=== PATIENT | male | born 1980 | race Hispanic/Latino ===

== ENCOUNTER 2023-03-04 18:32 | Emergency (ER) | payer SELFPAY ==
--- OUTSIDE RECORDS SUMMARY | 2023-03-04 18:35 | XMS REPORT | Continuity of Care Document ---
:1980 Author Organization [facility] t Address [address] [place] [address] Care Team Providers Name Role Phone Angella Becerril Primary Care Physician [phone] Yolanda Aguilar DO Attending Clinician Problems Condition Condition Condition Status Onset Resolution Last Treating Co mments Source Name Details Category Date Date Treatment Clinician Date No known No known Disease Unive rs active active ity of problems problems [facility] Allergies, Adverse Reactions, Alerts Allergy Allergy Status Severity Reaction(s) Onset Inactive Treating Comm ents Source Name Type Date Date Clinician NO KNOWN Drug Active Univers ALLERGIE Class ity of S [facility] Social History Social Habit Start Date Stop Date Quantity Comments Source Exposure to Not sure [facility] SARS-CoV-2 (event) Medica l Agency Sex Assigned At [birth year] [facility] 00:00:00 00:00:00 [facility] Smoking Status Start Date Stop Date Source Unknown if ever smoked [facility] Medications Ordered Filled Start Stop Current Ordering Indication Dosage Frequency Signature Comments Components Source Medication Medication Date Date Medication? Clinician (SIG) Name Name TAKE 1 2021-10 No 800 TABLET 3 1-04 TIMES DAILY 00:00: WITH FOOD 00 NEEDED. acetaminoph 2020- No 650mg 650 mg, U nivers en 04-21 Oral, ity of (TYLENOL) 19:30: 18[place]38 [place] 650 00 :00 dose, Sat Medi anshul mg 04/21/21 at Branch 1430, JOE dexamethaso 2020- No 10mg 10 mg, IV Univers ne 04-21 0710 Push, ity of (DECADRON 19:30: 19:30 [place] PHOS[place] 00 :00 dose, Sat Medi anshul injection 04/21/21 at Bran ch 10 mg 1430, STAT ketorolac 30mg 30 mg, Unive rs (TORADOL) 04-21 Slow IV ity of injection 18:30: 18:38 Push, [place] 30 mg 00 :00 ONCE, 1 Medical dose, [email or web address] Branch 04/21/21 at 1330, JOE
Fa culty member approving Restricted medication : YOLANDA AGUILAR Dose No Unknown -30 00:00: 00 No known [facility] Sign[facility] Vital Name Observation Time Observation Value Comments Source Systolic blood 2021-04-21 18:00:00 128 [facility]Hg[facility] Diastolic blood 2021-04-21 18:00:00 99 mm[Hg] [facility] Heart rate 2021-04-21 18:00:00 90 /min [facility] Respiratory rate 2021-04-21 18:00:00 13 /min [facility] Oxygen saturation in 2021-04-21 18:00:00 97 /min [facility] Arterial blood by [facility] Pulse oximetry Branch Body temperature 2021-04-21 17:44:00 37.94 Yakelin [facility] Body weight 2021-04-21 17:44:00 90.719 kg [facility] Heart Rate 2022-08-16 08:41:00 61.00 /min Respiratory Rate 2022-08-16 08:41:00 18.00 /min BP Systolic 2022-08-16 08:41:00 141 mm[Hg] BP Diastolic 2022-08-16 08:41:00 89 mm[Hg] Weight Measured 2022-08-16 08:41:00 200.60 pounds Height Measured 2022-08-16 08:41:00 68.00 inches Body Temperature 2022-08-16 08:41:00 97.60 degrees BP Systolic 2015-01-09 08:37:00 131 mm[Hg] BP Diastolic 2015-01-09 08:37:00 90 mm[Hg] Weight Measured 2015-01-09 08:37:00 198.40 pounds Height Measured 2015-01-09 08:37:00 68.00 inches Body Temperature 2015-01-09 08:37:00 98.30 degrees Heart Rate 2015-01-09 08:37:00 73.00 /min Respiratory Rate 2015-01-09 08:37:00 14.00 /min BP Systolic 2015-01-09 08:36:00 131 mm[Hg] BP Diastolic 2015-01-09 08:36:00 90 mm[Hg] Weight Measured 2015-01-09 08:36:00 198.40 pounds Height Measured 2015-01-09 08:36:00 68.00 inches Body Temperature 2015-01-09 08:36:00 98.30 degrees Heart Rate 2015-01-09 08:36:00 73.00 /min Respiratory Rate 2015-01-09 08:36:00 14.00 /min Procedures Procedure Date / Time Performed Performing Clinician [facility] e NOTICE OF PRIVACY 2021-04-21 17:29:23 Doctor Unassigned, No Univ [facility] PRACTICES Name Medical Branch CONSENT/REFUSAL FOR 2021-04-21 17:28:43 Doctor Unassigned, [facility] AND Name [facility] Branch TREATMENT Plan of Care Planned Activity Planned Date Details Comments Source Goal Plan of Care Note [code = 75385-8] Goal Plan of Care Note [code = 20326-1] Goal Plan of Care Note [code = 58880-3] Goal Plan of Care Note [code = 75230-7] Encounters Start End Encounter Admission Attending Care Care Encounter Source Date/Time Date/Time Type Type Clinicians Facility Department ID 2022-11-14 2022-11-14 Outpatient SFA SFA [id number] Ramesh 08:12:00 08:12:00 [id number] F Andreas 2022-11-13 2022-11-13 Outpatient SFA SFA [id number] Ramesh 15:06:00 15:06:00 [id number] F Andreas 2022-08-28 2022-08-28 Outpatient SFA SFA [id number] Ramesh 08:12:39 08:12:39 [id number] F Andreas 2022-08-21 2022-08-21 Outpatient SFA SFA [id number] Ramesh 16:31:49 16:31:49 [id number] F Andreas 2022-08-16 2022-08-16 Outpatient SFA SFA [id number] Ramesh 08:26:26 08:26:26 1104 F Andreas 2022-08-16 2022-08-16 Outpatient [id number] 00:00:00 00:00:00 Visit [id number] 2021-04-21 2021-04-21 [facility] [id number] Univers 12:46:00 14:02:00 [id number] [id number] [place] [id number] Agency 2021-04-21 2021-04-21 Emergency X [facility] [place] ERT [id number] Univers 12:29:00 12:29:00 ity [facility] [place] [facility] Results Test Description Test Time Test Comments Results Result Comments Source HIV 1/2 4TH GEN, RFLX CONF 2022-11-15 04:28:16 Test Item Value Reference Range Interpretation Comme nts HIV 1/2 4TH GEN, RFLX CONF (test code = 3514) NON-REACTIVE NON-REAC TIVE HEPATITIS PANEL, [id number] 04:28:16 Test Item Value Reference Range Interpretation Comments HEPATITIS A IgM (test NON-REACTIVE NON-REACTIVE code = 77382) HEPATITIS B CORE IgM NON-REACTIVE NON-REACTIVE (test code = 4644) HEPATITIS B SURF AG NON-REACTIVE NON-REACTIVE (test code = 2739) HEPATITIS C ANTIBODY NON-REACTIVE NON-REACTIVE (test code = 4675) INTERPRETATION (NOTE) Hepatitis A HEPATITIS A: (test code sero logy shows no = 2552) evidence of acu te hepatitis A. INTERPRETATION (NOTE) Hepatitis B HEPATITIS B: (test code sero logy shows no = 94193) evidence of acu te hepatitis B and no indication of exposure to hepatitis B vir us in the previous matilda eight months. INTERPRETATION (NOTE) Hepatitis C HEPATITIS C: (test code sero logy shows no = 62674) evidence of exposure to hepatitisC viru s at this time. I t can take up to 12 months after exposure tothe hepatitis C vir us for antibodies to become detectab le in the blood in certain patient s. [facility] has important pathology staff changes effecti ve 12/11/2022. New pathology staff will prov martha uninterrupted, excellent patie nt care and clinic al consultation. S ee URL: [email or web address]. UNLESS OTHERWIS E INDICATED, ALL TESTING PERFORM ED AT CLINICAL PATHOLOGY LAB[facility]ATORIES, [facility]. [address], [place] CLIA : [id number], CAP : [id number] LIPID [id number] 03:55:56 Test Item Value Reference Range Interpretation Comments CHOLESTEROL (test 218 MG/DL <200 H code = 2210) TRIGLYCERIDES (test 319 MG/DL <150 H code = 2232) HDL CHOLESTEROL (test 42 MG/DL >39 code = 2220) CALC LDL CHOL (test 130 MG/DL <100 H NOTE: C ALCULATED LDL code = 2237) IS BASED ON GIL-TALAVERA METHOD WHICHINCLUDES ADJUSTABLE TRIGLYCERIDE:VL DL CHOLESTEROL RAT IO.THIS FACTOR VARIES B Y MEASURED TRIGLY CERIDE AND NON-HDLCHOL ESTEROL CONCENTRATIONS WITH INCREASED CALCU LATED LDL SEENIN HIGH ER TRIGLYCERIDE OR LOWER NON-HDL SPECIME NS. FOR MOREINFORMATION , SEE CLIENT ANNOUNCE MENT AT [email or web address] [email or web address] LDL/HDL 3.10 RATIO <3.55 (test code = 2238) COMPREHENSIVE METABOLIC [id number] 03:55:56 Test Item Value Reference Range Interpretation Comments GLUCOSE (test code = 103 MG/DL 70-99 H 2216) BUN (test code = 13 MG/DL -2207) CREATININE (test 0.71 MG/DL 0.80-1.40 L code = 2214) eGFR (2020 CKD-EPI) 117 >60 (test code = 97043) ML/MIN/1.73 CALC BUN/CREAT (test 18 RATIO - code = 2235) SODIUM (test code = 138 MEQ/L 364-041 8490) POTASSIUM (test code 4.1 MEQ/L 3.5-5.4 = 2227) CHLORIDE (test code 99 MEQ/L 95-107 = 2214) CARBON DIOXIDE (test 26 MEQ/L 19-31 code = 2206) CALCIUM (test code = 9.2 MG/DL 8.5-10.5 2208) PROTEIN, TOTAL (test 7.6 G/DL 6.1-8.3 code = 2229) ALBUMIN (test code = 4.7 G/DL 3.5-5.2 2200) CALC GLOBULIN (test 2.9 G/DL 1.9-3.7 code = 2240) CALC A/G RATIO (test 1.6 RATIO 1.0-2.6 code = 2234) BILIRUBIN, TOTAL 0.3 MG/DL See_Comment [Automated message] (test code = 2206) The syste m which generated this result transmit maisha reference range : <=1.2. The refe rence range was not u sed to interpret th is result as normal/abnormal . ALKALINE PHOSPHATASE 100 U/L 40-119 (test code = 2203) AST (test code = 22 U/L 9-50 2217) ALT (test code = 42 U/L 5-50 2218) HEMOGLOBIN [id number] 03:36:49 Test Item Value Reference Range Interpretation Comments HEMOGLOBIN A1c (test code = 02996) 5.7 % 4.2-5.6 H CBC W/AUTO DIFF WITH [id number] 02:40:08 Test Item Value Reference Range Interpretation Comments WBC (test code = 6.5 K/UL 3.5-11.0 1001) RBC (test code = 4.87 M/UL 4.50-6.10 1002) HEMOGLOBIN (test code 15.3 G/DL 13.5-17.0 = 1003) HEMATOCRIT (test code 44.3 % 40.0-51.0 = 1004) MCV (test code = 91.0 fL 80.0-99.0 1005) MCH (test code = 31.4 PG 25.0-33.0 1006) MCHC (test code = 34.5 G/DL 31.0-36.0 1007) RDW (test code = 12.6 % 11.5-15.0 1038) NEUTROPHILS (test 55.6 % code = 1008) LYMPHOCYTES (test 35.5 % code = 1010) MONOCYTES (test code 7.3 % = 1011) EOSINOPHILS (test 1.1 % code = 1012) BASOPHILS (test code 0.3 % = 1013) IMMATURE GRANULOCYTES 0.2 % (test code = 1036) NUCLEATED RBCS (test 0.0 /100 WBC'S See_Comment [Aut omated code = 1065) message] The sy stem which generated this result transmitted reference range : 0.0. The refere nce range was not u sed to interpret th is result as normal/abnormal . PLATELET COUNT (test 290 K/UL 130-400 code = 1015) ABSOLUTE NEUTROPHILS 3.59 K/UL 1.50-7.50 (test code = 1066) ABSOLUTE LYMPHOCYTES 2.29 K/UL 1.00-4.00 (test code = 1067) ABSOLUTE MONOCYTES 0.47 K/UL 0.20-1.00 (test code = 1068) ABSOLUTE EOSINOPHILS 0.07 K/UL 0.00-0.50 (test code = 1040) ABSOLUTE BASOPHILS 0.02 K/UL 0.00-0.20 (test code = 1069) ABS IMMATURE 0.01 K/UL 0.00-0.10 GRANULOCYTES (test code = 1020) ABS NUCLEATED RBCS 0.00 K/UL 0.00-0.11 (test code = 90148)
--- NOTE | 2023-03-04 20:05 | RAD REPORT ---
EXAM DESCRIPTION: Miguelina Single View03/04/2023 7:15 pm CLINICAL HISTORY: sob, chest pain COMPARISON: No comparisons TECHNIQUE: Portable AP view of the chest. FINDINGS: The lungs show no focal consolidation. Mild central interstitial prominence and streaky op acities. No pneumothorax or effusion. The cardiomediastinal contours are unremarkable. IMPRESSION: Mild central interstitial prominence, and streaky opacities could reflect mild central c ongestion versus reactive airway disease.
[2023-03-04 20:56] LABS: Absolute Lymphocytes (CBC) 2.3 K/uL (0.7-4.9); Lymphocytes % 36.1 % (15.3-44.8); MCV 91.2 fL (80-100); MPV 6.8 fL (7.6-11.3); RBC Red Blood Cell Count 4.28 M/uL (4.33-5.43)
[2023-03-04 21:12] LABS: Potassium 3.5 mEq/L (3.5-5.1)
[2023-03-04] MEDS ORDERED: IBUPROFEN 100 MG/5 ML UCUP ONE (21:30)
--- NOTE | 2023-03-04 23:10 | ER ---
Nurse's Notes [facility] Name: Nick Santiago Age: 42 yrs Sex: Male : 1980 Arrival Date: 03/04/2023 Time: 18:32 Bed 7 Private MD: Diagnosis: Dyspnea Presentation: 03/04 18:54 Chief complaint: Patient states: diff breathing for two months , worse last night, and iw has pain in his chest X 2 weeks. Coronavirus screen: At this time, the client does not indicate any symptoms associated with coronavirus-19. Ebola Screen: Patient negative for fever greater than or equal to 101.5 degrees Fahrenheit, and additional compatible Ebola Virus Disease symptoms Patient denies exposure to infectious person. Patient denies travel to an Ebola-affected area in the 21 days before illness onset. No symptoms or risks identified at this time. Initial Sepsis Screen: Does the patient meet any 2 criteria? No. Patient's initial sepsis screen is negative. Does the patient have a suspected source of infection? No. Patient's initial sepsis screen is negative. Risk Assessment: Do you want to hurt yourself or someone else? Patient reports no desire to harm self or others. Onset of symptoms was December 2022. 18:54 Method Of Arrival: Ambulatory iw 18:54 Acuity: JOE 3 iw Historical: - Allergies: 18:56 No Known Allergies; iw - Home Meds: 18:56 None [Active]; iw - PMHx: 18:56 None; iw - PSHx: 18:56 None; iw - Immunization history:: Client reports receiving the 2nd dose of the Covid vaccine. - Social history:: Smoking status: Patient denies any tobacco usage or history of. Patient uses alcohol, weekly. Screenin:30 [facility] ED Fall Risk Assessment (Adult) History of falling in the last 3 months, jb4 including since admission No falls in past 3 months (0 pts) Confusion or Disorientation No (0 pts) Score/Fall Risk Level 0 - 2 = Low Risk Oriented to surroundings, Maintained a safe environment. Abuse screen: Denies threats or abuse. Nutritional screening: No deficits noted. Tuberculosis screening: No symptoms or risk factors identified. Assessment: 20:40 General: Appears in no apparent distress. comfortable, Behavior is calm, cooperative, jb4 appropriate for age. Pain: Complains of pain in chest Pain does not radiate. Pain currently is 7 out of 10 on a pain scale. Neuro: Level of Consciousness is awake, alert, obeys commands, Oriented to person, place, time, situation. Cardiovascular: Patient's skin is warm and dry. Respiratory: Airway is patent Respiratory effort is even, unlabored, Respiratory pattern is regular, symmetrical. GI: No signs and/or symptoms were reported involving the gastrointestinal system. : No signs and/or symptoms were reported regarding the genitourinary system. EENT: No signs and/or symptoms were reported regarding the EENT system. Derm: Skin is intact, Skin is pink, warm \T\ dry. Musculoskeletal: Circulation, motion, and sensation intact. Range of motion: intact in all extremities. 21:26 Reassessment: Patient appears in no apparent distress at this time. Patient and/or jb4 family updated on plan of care and expected duration. Pain level reassessed. Patient is alert, oriented x 3, equal unlabored respirations, skin warm/dry/pink. 22:30 Reassessment: Patient appears in no apparent distress at this time. Patient and/or jb4 family updated on plan of care and expected duration. Pain level reassessed. Patient is alert, oriented x 3, equal unlabored respirations, skin warm/dry/pink. 23:29 Reassessment: Patient appears in no apparent distress at this time. Patient and/or jb4 family updated on plan of care and expected duration. Pain level reassessed. Patient is alert, oriented x 3, equal unlabored respirations, skin warm/dry/pink. Vital Signs: 18:54 BP 131 / 95; Pulse 70; Resp 19; Temp 98.1; Pulse Ox 98% on R/A; Weight 90.72 kg; Pain iw 7/10; 21:30 BP 120 / 89; Pulse 63; Resp 16; Pulse Ox 99% on R/A; jb4 22:30 BP 124 / 95; Pulse 63; Resp 16; Pulse Ox 100% on R/A; jb4 23:15 BP 134 / 83; Pulse 72; Resp 16; Pulse Ox 99% on R/A; jb4 18:54 Pain Scale: Adult iw ED Course: 18:37 Patient arrived in ED. mr 18:39 Panda Bledsoe PA is PHCP. [facility] 18:39 Aline Soto MD is Attending Physician. [facility] 18:56 Triage completed. iw 18:57 Arm band placed on. iw 19:17 XRAY Chest (1 view) In Process Unspecified. EDMS 20:40 Initial lab(s) drawn, by me, sent to lab. Inserted saline lock: 18 gauge in right jb4 antecubital area, using aseptic technique. Blood collected. 21:24 Mitesh Morgan, RN is Primary Nurse. jb4 23:09 Landon Herbert MD is Referral Physician. [facility] 23:30 Patient has correct armband on for positive identification. Bed in low position. Call jb4 light in reach. Side rails up X 1. Client placed on continuous cardiac and pulse oximetry monitoring. NIBP monitoring applied. monitoring and evaluation advisor on. 23:30 No provider procedures requiring assistance completed. IV discontinued, intact, jb4 bleeding controlled, No redness/swelling at site. Pressure dressing applied. Administered Medications: 23:21 Drug: Decadron - Dexamethasone IVP 10 mg Route: IVP; Site: right antecubital; jb4 23:22 Drug: Levalbuterol Inhalation 1.25 mg Route: Inhalation; jb4 Outcome: 23:09 Discharge ordered by MD. [facility] 23:30 Discharged to home ambulatory, with family. jb4 23:30 Condition: stable 23:30 Discharge instructions given to patient, Instructed on discharge instructions, follow up and referral plans. medication usage, Demonstrated understanding of instructions, follow-up care, medications, Prescriptions given X 3. 23:30 Patient left the ED. jb4 Signatures: Dispatcher [employer] EDPR Panda Bledsoe PA PA jmm Rivera, Mary mr Williams, Irene, RN RN Mitesh Morgan, KARLI RN jb4
--- NOTE | 2023-03-04 23:11 | EDPHYS ---
Physician Documentation [facility] Name: Nick Santiago Age: 42 yrs Sex: Male : 1980 Arrival Date: 03/04/2023 Time: 18:32 Bed 7 Private MD: ED Physician Aline Soto HPI: 03/04 18:59 This 42 yrs old Male presents to ER via Ambulatory with complaints of jmm Breathing Difficulty. 18:59 The patient has shortness of breath at rest. Onset: The symptoms/episode began/occurred jmm gradually, 2 week(s) ago. Duration: The symptoms are continuous. The patient's shortness of breath is aggravated by nothing, is alleviated by nothing. Is a 42-year-old male with no chronic medical conditions who presents Emergency Department with progressively worsening shortness of breath beginning approximately 2 weeks ago. Patient is also complained of intermittent episodes of chest pain over the past 2 months. Denies fever, denies cough.. Historical: - Allergies: 18:56 No Known Allergies; iw - Home Meds: 18:56 None [Active]; iw - PMHx: 18:56 None; iw - PSHx: 18:56 None; iw - Immunization history:: Client reports receiving the 2nd dose of the Covid vaccine. - Social history:: Smoking status: Patient denies any tobacco usage or history of. Patient uses alcohol, weekly. ROS: 18:59 Constitutional: Negative for fever, chills, and weight loss. jmm 18:59 Cardiovascular: Positive for chest pain. 18:59 Respiratory: Positive for shortness of breath. 18:59 All other systems are negative. Exam: 18:59 Constitutional: This is a well developed, well nourished patient who is awake, alert, jmm and in no acute distress. Head/Face: atraumatic. Eyes: EOMI, no conjunctival erythema appreciated ENT: Moist Mucus Membranes Neck: Trachea midline, Supple Chest/axilla: Normal chest wall appearance and motion. Cardiovascular: Regular rate and rhythm. No edema appreciated Respiratory: Normal respirations, no respiratory distress appreciated Abdomen/GI: Non distended Back: Normal ROM Skin: General appearance color normal MS/ Extremity: Moves all extremities, no obvious deformities appreciated, no edema noted to the lower extremities Neuro: Awake and alert Psych: Behavior is normal, Mood is normal, Patient is cooperative and pleasant Vital Signs: 18:54 BP 131 / 95; Pulse 70; Resp 19; Temp 98.1; Pulse Ox 98% on R/A; Weight 90.72 kg; Pain iw 7/10; 21:30 BP 120 / 89; Pulse 63; Resp 16; Pulse Ox 99% on R/A; jb4 22:30 BP 124 / 95; Pulse 63; Resp 16; Pulse Ox 100% on R/A; jb4 23:15 BP 134 / 83; Pulse 72; Resp 16; Pulse Ox 99% on R/A; jb4 18:54 Pain Scale: Adult iw MDM: 18:59 Patient medically screened. [facility] 23:08 Differential diagnosis: Pneumonia, ACS, pulmonary embolism. Data reviewed: vital signs, [facility] nurses notes, radiologic studies, plain films. Consideration of Admission/Observation Escalation of care including admission/observation considered. Counseling: I had a detailed discussion with the patient and/or guardian regarding: the historical points, exam findings, and any diagnostic results supporting the discharge/admit diagnosis, lab results, radiology results, the need for outpatient follow up, to return to the emergency department if symptoms worsen or persist or if there are any questions or concerns that arise at home. ED course: Labs unremarkable. Chest x-ray concerning for reactive airway disease. Patient will be put on a course of steroids and advised to follow-up with pulmonology for further evaluation.. 03/04 18:59 Order name: Basic Metabolic Panel; Complete Time: 21:14 [facility] 03/04 18:59 Order name: CBC with Diff; Complete Time: 21:05 [facility] 03/04 18:59 Order name: D-Dimer; Complete Time: 21:05 [facility] 03/04 18:59 Order name: NT PRO-BNP; Complete Time: 21:14 [facility] 03/04 18:59 Order name: Troponin HS; Complete Time: 21:14 [facility] 03/04 18:59 Order name: XRAY Chest (1 view); Complete Time: 20:32 [facility] 03/04 18:59 Order name: EKG; Complete Time: 19:00 [facility] 03/04 18:59 Order name: Cardiac monitoring; Complete Time: 20:27 [facility] 03/04 18:59 Order name: EKG - Nurse/Tech; Complete Time: 20:27 [facility] 03/04 18:59 Order name: IV Saline Lock; Complete Time: 21:24 [facility] 03/04 18:59 Order name: Labs collected and sent; Complete Time: 21:24 [facility] 03/04 18:59 Order name: O2 Per Protocol; Complete Time: 20:27 [facility] 03/04 18:59 Order name: O2 Sat Monitoring; Complete Time: 20:27 [facility] Administered Medications: 23:21 Drug: Decadron - Dexamethasone IVP 10 mg Route: IVP; Site: right antecubital; jb4 23:22 Drug: Levalbuterol Inhalation 1.25 mg Route: Inhalation; jb4 Disposition Summary: 03/04/23 23:09 Discharge Ordered Location: Home [facility] Condition: Stable [facility] Diagnosis - Dyspnea [facility] Followup: [facility] - With: Landon Herbert MD - When: 2 - 3 days - Reason: Recheck today's complaints, Continuance of care, Re-evaluation by your physician Discharge Instructions: - Discharge Summary Sheet [facility] - Shortness of Breath, Adult [facility] Forms: - Medication Reconciliation Form [facility] - Thank You Letter [facility] - Antibiotic Education [facility] - Prescription Opioid Use [facility] Prescriptions: - albuterol sulfate 90 mcg/actuation Inhalation HFA Aerosol Inhaler - inhale 2 inhalation by INHALATION route every 4 hours As needed administer via [facility] ventilator; 1 unit; Refills: 0, Product Selection Permitted - Prednisone 20 mg Oral Tablet - take 3 tablets by ORAL route once daily for 5 days; 15 tablet; Refills: 0, [facility] Product Selection Permitted - Zithromax Z-Terrance 250 mg Oral Tablet - take 1 tablet by ORAL route as directed for 5 days Day 1 - take two (2) tablets [facility] one time. Day 2, 3, 4 , 5 take one (1) tablet once daily.; 6 tablet; Refills: 0, Product Selection Permitted Signatures: Dispatcher [employer] Panda Gupta PA PA jmm Williams, Irene, RN RN iw Bryson, James, RN RN jb4
[2023-03-04] MEDS ORDERED: LEVALBUTEROL 1.25 MG/3 ML NEB ONE (23:22)
[2023-03-04] MEDS ORDERED: dexAMETHasone 10 MG/ML VIAL ONE (23:22)
[2023-03-05 00:30] VITALS: TEMP 98.1
[2023-03-05 00:35] VITALS: BP 134/83; O2SAT 99
--- NOTE | 2023-03-05 04:54 | EKG ---
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
== END 2023-03-04 23:30 | disposition home or self-care (01) ==
LOC: ER 18:32
DX: R06.00 Dyspnea, unspecified (principal); R07.9 Chest pain, unspecified
CPT/HCPCS: 36415; 71045; 80048; 83880; 84484; 85025; 85379; 93005; J1100; J7614